=== PATIENT | male | born 1940 | race Caucasian/White ===

== ENCOUNTER → 2017-02-17 | Outpatient (CLI) | payer BC ==
[~2017-02-17] MED LIST: ALL300 PO; ASPI-435 PO; CALC1CRE2 EX; CALC1CRE2 EXT; CHOL100027 PO; CLR10 PO; CYAN250T PO; LISI-729 PO; OFLO0.3S4 OPL; PRED1SUS3 OPR; TERA1CAP63 PO; ZCRT/40 PO
--- NOTE | 2017-02-17 15:54 | DIAGNOSTIC IMAGING REPORT ---
L HAND MIN 3 VIEWS ROUTINE CLINICAL HISTORY: 76 years-old Male presenting with L40.9, history of arthritis and bilateral hand pain, history of metal in the left hand. TECHNIQUE: Frontal, oblique, and lateral views of the left hand were obtained. COMPARISON: Correlation made to plain radiographs of the right hand performed the same day. FINDINGS: A radiopaque foreign body projects over the base of the fourth metacarpal, which is consistent with the patient's history. No acute fracture or malalignment. Degenerative changes of the radiocarpal articulation with the scaphoid. Subchondral cystic changes suggested in the scaphoid. Degenerative change of the scaphoid-trapezium and trapezium-first metacarpal articulations also suggested. Diffuse joint space loss and osteophytosis at the distal interphalangeal joints most prominently in the second through the fourth fingers. Central erosions may be present. Osteopenia. No gross soft tissue abnormality. IMPRESSION: The distribution of arthritic changes is most typical for osteoarthritis. 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 Electronically signed by: Alli Chiu M.D. 02/17/2017 3:52 PM Dictated Date/Time: 02/17/2017 3:48 PM
--- NOTE | 2017-02-17 15:55 | DIAGNOSTIC IMAGING REPORT ---
R HAND MIN 3 VIEWS ROUTINE CLINICAL HISTORY: 76 years-old Male presenting with L40.9, history of arthritis, bilateral hand pain, history of metal in the left hand. TECHNIQUE: Frontal, oblique, and lateral views the right hand were obtained. COMPARISON: Correlation made to plain radiographs of the left hand performed the same day. FINDINGS: No acute fracture or malalignment. Subchondral cystic change suggested in the scaphoid at the articulation with the trapezium. Degenerative changes of the distal interphalangeal joints with joint space loss and subchondral cystic change. Osteopenia. Soft tissues radiographically normal. IMPRESSION: The distribution of degenerative changes is most consistent with osteoarthritis. Electronically signed by: Alli Chiu M.D. 02/17/2017 3:54 PM Dictated Date/Time: 02/17/2017 3:52 PM
== END | disposition home or self-care (01) ==
LOC: C.RAD1850 14:53
PROVIDERS: ATTEND Internal Medicine
DX: L40.50 Arthropathic psoriasis, unspecified (principal)